=== PATIENT | female | born 1995 | race Hispanic/Latino ===

== ENCOUNTER 2018-04-17 21:11 | Emergency (ER) | payer MEDICAID ==
[~2018-04-17 21:11] MED LIST: MO8B PO
[2018-04-17 22:01] LABS: BASOPHILS % (AUTO) 0.6 % (0.0-5.0); EOSINOPHILS % (AUTO) 5.8 % (0.0-8.0); HEMATOCRIT 36.3 % (36-48); LYMPHOCYTES % (AUTO) 30.6 % (21.0-51.0); MEAN CORPUSCULAR HEMOGLOBIN 26.6 pg (27.0-33.0); MEAN CORPUSCULAR HGB CONC 33.2 g/dL (32.0-36.0); MEAN CORPUSCULAR VOLUME 80.2 fL (80-100); MONOCYTES % (AUTO) 4.9 % (3.0-13.0); NEUTROPHILS % (AUTO) 58.1 % (40.0-77.0); NUCLEATED RED BLOOD CELLS 0.1 % (0.0-0.19); PLATELET COUNT (AUTO) 312 K/uL (130-400); RED BLOOD CELL COUNT(AUTO) 4.52 MIL/uL (4.00-5.50); RED CELL DISTRIBUTION WIDTH 16.7 % (11.0-15.5); WHITE BLOOD COUNT (AUTO) 9.1 K/uL (4.8-10.8)
== END 2018-04-18 00:23 | disposition home or self-care (01) ==
LOC: EDH 21:11
DX: O20.0 Threatened abortion (principal); Z3A.15 15 weeks gestation of pregnancy
CPT/HCPCS: 36415; 76801; 84702; 85025; 86900; 86901

== ENCOUNTER 2018-10-10 07:37 | Inpatient (IN) | payer MEDICAID ==
[~2018-10-10] VITALS: Ht 160 cm; Wt 73.9 kg
[~2018-10-10 07:37] MED LIST changes: +IBUP-1493 PO; -MO8B PO
[2018-10-10] MEDS ORDERED: OXYTOCIN 10 USP UNITS/ML 20 UNIT in LACTATED RINGERS 1000ML 1,000 ML IV SCH (08:15)
[2018-10-10 08:23] LABS: APPEARANCE,URINE Clear (CLEAR); BILIRUBIN,URINE Negative (NEGATIVE); COLOR,URINE Yellow (YELLOW); GLUCOSE, URINE (UA) Negative (NEGATIVE); KETONES,URINE Negative (NEGATIVE); LEUKOCYTE ESTERASE ,URINE Large (NEGATIVE); NITRATE,URINE Negative (NEGATIVE); OCCULT BLOOD,URINE Small (NEGATIVE); PROTEIN,URINE Negative (NEGATIVE)
[2018-10-10 08:45] LABS: BACTERIA,URINE Few /HPF (None Seen); RBC,URINE 0-1 /HPF (0-1); TRICHOMONAS,URINE Few /LPF (None Seen); WBC,URINE >100 /HPF (0-1)
[2018-10-10 08:46] LABS: SQUAMOUS EPITHELIAL CELL,UR Moderate /HPF (0-2); YEAST,URINE BUDDING Few /HPF (None Seen)
[2018-10-10 08:47] LABS: MUCUS,URINE Rare LPF (None Seen)
[2018-10-10] MEDS ORDERED: OXYTOCIN-LR 20 UNITS/1000 ML 1,000 ML IV SCH ×3 (08:49→16:15)
[2018-10-10 08:53] LABS: HEMATOCRIT 31.1 % (36-48); MEAN CORPUSCULAR HEMOGLOBIN 24.6 pg (27.0-33.0); MEAN CORPUSCULAR HGB CONC 32.5 g/dL (32.0-36.0); MEAN CORPUSCULAR VOLUME 75.8 fL (80-100); PLATELET COUNT (AUTO) 289 K/uL (130-400); RED CELL DISTRIBUTION WIDTH 16.6 % (11.0-15.5); WHITE BLOOD COUNT (AUTO) 12.2 K/uL (4.8-10.8)
[2018-10-10] MEDS: LACTATED RINGERS 1000ML 1,000 ML IV PRN ×2 (08:54→11:03)
[2018-10-10] MEDS ORDERED: MEPERIDINE-PF 50 MG/ML SYG IVP PRN (09:00)
[2018-10-10] MEDS ORDERED: PROMETHAZINE HCL 25 MG/ML 1ML AMPULE IM PRN (09:00)
[2018-10-10] MEDS ORDERED: NALOXONE HCL 0.4 MG/1 ML ML IV PRN (09:00)
[2018-10-10] MEDS ORDERED: LIDOCAINE 2%-EPI 1:200,000 20 ML VIAL IJ SCH (09:00)
[2018-10-10] MEDS ORDERED: EPHEDRINE SULFATE 50 MG/ML AMPULE IVP PRN (09:00)
[2018-10-10] MEDS ORDERED: LACTATED RINGERS 500 ML 500 ML IV PRN (09:00)
[2018-10-10] MEDS ORDERED: ROPIVACAINE 0.2% 100ML VIAL 100 ML EP SCH (09:00)
[2018-10-10] MEDS ORDERED: ACETAMINOPHEN-CODEINE 300/30MG TAB PO PRN (16:15)
[2018-10-10] MEDS ORDERED: WITCH HAZEL 1 PAD TP PRN (16:15)
[2018-10-10] MEDS ORDERED: BENZOCAINE/LANOLIN/ALOE VERA 60 ML AEROSOL TP PRN (16:15)
[2018-10-10] MEDS ORDERED: LANOLIN 30GM OINTMENT TP PRN (16:15)
[2018-10-10] MEDS ORDERED: DIPH,PERTUSS(ACELL),TET VAC/PF 0.5 ML VIAL IM PRN (16:15)
[2018-10-10 18:39] VITALS: BP 119/68
[2018-10-10 19:41] VITALS: BP 115/78
[2018-10-10] MEDS: DOCUSATE SODIUM 100 MG CAP PO SCH (20:47)
[2018-10-10] MEDS: IBUPROFEN 800 MG TAB PO PRN (20:49)
[2018-10-10 23:18] VITALS: BP 102/74
[2018-10-11 03:13] VITALS: BP 91/57
[2018-10-11] MEDS: IBUPROFEN 800 MG TAB PO PRN ×2 (06:38→17:24)
[2018-10-11 07:25] VITALS: BP 101/74
[2018-10-11 08:32] LABS: RAPID PLASMA REAGIN NONREACTIVE (NONREACTIVE)
[2018-10-11 08:41] LABS: HEPATITIS Bs ANTIGEN SCREEN P Negative (Negative)
[2018-10-11] MEDS: DOCUSATE SODIUM 100 MG CAP PO SCH (08:54)
--- NOTE | 2018-10-11 09:00 | NUR ---
DR. SWIFT ROUNDED AND DISCHARGED PATIENT TO HOME ONCE BABY IS DISCHARGED. PATIENT DENIES ANY PROBLEMS AND VERBALIZED DOING WELL.
[2018-10-11 11:21] VITALS: BP 99/64
--- NOTE | 2018-10-11 12:00 | NUR ---
REMAINS STABLE AND DENIES PAIN.
[2018-10-11 16:18] VITALS: BP 96/62
--- NOTE | 2018-10-11 17:30 | NUR ---
PATIENT WAS GIVEN DISCHARGE INSTRUCTIONS AND WAS GIVEN MOTRIN PRIOR TO DISCHARGE. PATIENT INDICATED FOR MILD PAIN. DISCHARGE GIVEN AND WAS TAKEN VIA W/C CARRYING BABY IN ARMS. BOTH DISCHARGED TO SPOUSE IN STABLE CONDITION.
== END 2018-10-11 17:30 | disposition home or self-care (01) | DRG 560 ==
LOC: LDH 07:37 → WSH 18:34
PROC: 10E0XZZ Delivery of Products of Conception, External Approach (ICD-10-PCS; principal; 2018-10-10)
PROC: 3E033VJ Introduction of Other Hormone into Peripheral Vein, Percutaneous Approach (ICD-10-PCS; 2018-10-10)
PROC: 3E0234Z Introduction of Serum, Toxoid and Vaccine into Muscle, Percutaneous Approach (ICD-10-PCS; 2018-10-10)
PROC: 3E0R3BZ Introduction of Anesthetic Agent into Spinal Canal, Percutaneous Approach (ICD-10-PCS; 2018-10-10)
PROC: 00HU33Z Insertion of Infusion Device into Spinal Canal, Percutaneous Approach (ICD-10-PCS; 2018-10-10)
DX: O80 Encounter for full-term uncomplicated delivery (principal); Z23 Encounter for immunization; Z37.0 Single live birth; Z3A.39 39 weeks gestation of pregnancy
CPT/HCPCS: 36415; 81001; 85027; 86592; 86701; 86850; 86900; 86901; 87340; 87390; 90715; A4314; G0378; J2590; J2795; J3490

== ENCOUNTER 2019-12-26 16:02 | Observation (INO) | payer MEDICAID ==
[~2019-12-26] VITALS: Ht 160 cm; Wt 73.0 kg
[2019-12-26] MEDS: LACTATED RINGERS 1000ML IV SCH ×2 (16:55→18:00)
[2019-12-26 17:09] LABS: APPEARANCE,URINE Cloudy (CLEAR); BILIRUBIN,URINE Negative (NEGATIVE); COLOR,URINE Dark Yellow (YELLOW); GLUCOSE, URINE (UA) Negative (NEGATIVE); KETONES,URINE Negative (NEGATIVE); LEUKOCYTE ESTERASE ,URINE Large (NEGATIVE); NITRATE,URINE Positive (NEGATIVE); OCCULT BLOOD,URINE Moderate (NEGATIVE); PH,URINE 6.5 (5.0-8.0); PROTEIN,URINE Trace mg/dL (NEGATIVE)
[2019-12-26 17:25] LABS: HEMATOCRIT 31.1 % (36-48); MEAN CORPUSCULAR HGB CONC 32.2 g/dL (32.0-36.0); MEAN CORPUSCULAR VOLUME 84.1 fL (79-99); RED BLOOD CELL COUNT(AUTO) 3.7 MIL/uL (4.00-5.50); RED CELL DISTRIBUTION WIDTH 13.2 % (11.0-15.5); WHITE BLOOD COUNT (AUTO) 12.9 K/uL (4.8-10.8)
[2019-12-26 17:36] LABS: BACTERIA,URINE Few /HPF (None Seen); MUCUS,URINE Few LPF (None Seen); SQUAMOUS EPITHELIAL CELL,UR Moderate /HPF (0-2)
[2019-12-26] MEDS ORDERED: CEFTRIAXONE SODIUM 1 GM IV SCH (18:45)
[2019-12-26] MEDS ORDERED: SODIUM CHLORIDE 0.9% 10 ML VIAL ONE (19:32)
== END 2019-12-26 20:45 | disposition home or self-care (01) ==
LOC: EDH 16:02 → LDH 16:03
PROVIDERS: ADMIT Specialist; ATTEND Specialist
DX: O26.853 Spotting complicating pregnancy, third trimester (principal); R10.2 Pelvic and perineal pain; Z3A.32 32 weeks gestation of pregnancy
CPT/HCPCS: 36415; 76805; 81001; 85027; 87077; 87088; 87186; 96361; 96374; 99284; G0378 ×5; J0696; J7120 ×2; 96360

== ENCOUNTER 2020-02-04 02:05 | Inpatient (IN) | payer MEDICAID ==
[~2020-02-04] VITALS: Ht 157.5 cm; Wt 77.1 kg
[2020-02-04 02:53] LABS: BILIRUBIN,URINE Negative (NEGATIVE); COLOR,URINE Yellow (YELLOW); GLUCOSE, URINE (UA) Negative (NEGATIVE); KETONES,URINE Negative (NEGATIVE); LEUKOCYTE ESTERASE ,URINE Large (NEGATIVE); NITRATE,URINE Negative (NEGATIVE); OCCULT BLOOD,URINE Large (NEGATIVE); PH,URINE 6.5 (5.0-8.0); PROTEIN,URINE Negative (NEGATIVE)
[2020-02-04 02:54] LABS: APPEARANCE,URINE HAZY (CLEAR)
[2020-02-04] MEDS ORDERED: LACTATED RINGERS 1000ML 1,000 ML IV ONE (03:11)
[2020-02-04 03:14] LABS: BACTERIA,URINE Moderate /HPF (None Seen); TRICHOMONAS,URINE Few /LPF (None Seen); WBC,URINE 26-50 /HPF (0-1)
[2020-02-04] MEDS ORDERED: LACTATED RINGERS 1000ML 1,000 ML IV PRN (03:20)
[2020-02-04] MEDS ORDERED: ROPIVACAINE 0.2% 100ML VIAL 100 ML EP SCH (03:30)
[2020-02-04] MEDS ORDERED: LACTATED RINGERS 500 ML 500 ML IV PRN (03:30)
[2020-02-04] MEDS ORDERED: NALOXONE HCL 0.4 MG/1 ML ML IV PRN (03:30)
[2020-02-04] MEDS ORDERED: EPHEDRINE SULFATE 50 MG/ML AMPULE IVP PRN (03:30)
[2020-02-04] MEDS ORDERED: LIDOCAINE HCL 1% 20 ML VIAL ONE (03:39)
[2020-02-04 03:49] LABS: HEMATOCRIT 36.6 % (36-48); MEAN CORPUSCULAR HEMOGLOBIN 27.2 pg (27.0-33.0); MEAN CORPUSCULAR HGB CONC 32.5 g/dL (32.0-36.0); MEAN CORPUSCULAR VOLUME 83.8 fL (79-99); RED BLOOD CELL COUNT(AUTO) 4.37 MIL/uL (4.00-5.50); RED CELL DISTRIBUTION WIDTH 14.7 % (11.0-15.5); WHITE BLOOD COUNT (AUTO) 15.3 K/uL (4.8-10.8)
[2020-02-04] MEDS: OXYTOCIN-LR 20 UNITS/1000 ML 1,000 ML IV SCH ×2 (07:51→09:07)
[2020-02-04] MEDS ORDERED: ACETAMINOPHEN-CODEINE 300/30MG TAB PO PRN (08:30)
[2020-02-04] MEDS ORDERED: ACETAMINOPHEN 325 MG TAB PO PRN (08:30)
[2020-02-04] MEDS ORDERED: OXYTOCIN-LR 20 UNITS/1000 ML 1,000 ML IV SCH (08:30)
[2020-02-04] MEDS ORDERED: MEASLES/MUMPS/RUBELLA VACCINE, LIVE 0.5 ML/VIAL SQ PRN (08:30)
[2020-02-04] MEDS ORDERED: LANOLIN 30GM OINTMENT TP PRN (08:30)
[2020-02-04] MEDS ORDERED: BENZOCAINE/LANOLIN/ALOE VERA 60 ML AEROSOL TP PRN (08:30)
[2020-02-04] MEDS ORDERED: DIPH,PERTUSS(ACELL),TET VAC/PF 0.5 ML VIAL IM PRN (08:30)
[2020-02-04] MEDS ORDERED: WITCH HAZEL 1 PAD TP PRN (08:30)
[2020-02-04] MEDS: IBUPROFEN 600 MG TABLET PO PRN ×2 (09:08→16:25)
[2020-02-04 09:46] VITALS: BP 113/63
[2020-02-04] MEDS: DOCUSATE SODIUM 100 MG CAP PO SCH ×2 (09:55→20:56)
[2020-02-04] MEDS ORDERED: PREN-196 PO (10:02)
[2020-02-04 11:28] VITALS: BP 122/69
[2020-02-04 16:12] VITALS: BP 111/71
[2020-02-04 20:00] VITALS: BP 105/66
[2020-02-04 23:29] VITALS: BP 111/72
[2020-02-05 04:00] VITALS: BP 101/55
[2020-02-05 07:27] VITALS: BP 111/72
[2020-02-05] MEDS: IBUPROFEN 600 MG TABLET PO PRN (07:40)
[2020-02-05] MEDS: DOCUSATE SODIUM 100 MG CAP PO SCH (09:12)
--- NOTE | 2020-02-05 10:10 | NUR ---
pt is discharged, verbal and written discharge instructions given, informed of the follow up appointment, prescription given. informed to call the doctor for future concerns. pt voiced understanding to all things discussed. pt is waiting for baby's discharge. Addendum: 02/05/20 at 1020 by MAMADOU VARMA RN Amended: Links added.
--- NOTE | 2020-02-05 11:25 | NUR ---
pt is dismissed with her baby in stable condition. brought to private car via wheelchair by Jennifer Jasmine RN Addendum: 02/05/20 at 1126 by MAMADOU VARMA RN Amended: Links added.
== END 2020-02-05 11:25 | disposition home or self-care (01) | DRG 560 ==
LOC: EDH 02:05 → LDH 02:06 → OBSVTOIN 02:06 → WSH 09:40
PROVIDERS: ADMIT Specialist; ATTEND Specialist
PROC: 10E0XZZ Delivery of Products of Conception, External Approach (ICD-10-PCS; principal; 2020-02-04)
PROC: 3E0234Z Introduction of Serum, Toxoid and Vaccine into Muscle, Percutaneous Approach (ICD-10-PCS; 2020-02-04)
PROC: 3E0R3BZ Introduction of Anesthetic Agent into Spinal Canal, Percutaneous Approach (ICD-10-PCS; 2020-02-04)
PROC: 00HU33Z Insertion of Infusion Device into Spinal Canal, Percutaneous Approach (ICD-10-PCS; 2020-02-04)
DX: O80 Encounter for full-term uncomplicated delivery (principal); Z3A.38 38 weeks gestation of pregnancy; Z37.0 Single live birth; Z23 Encounter for immunization
CPT/HCPCS: 36415; 81001; 85027; 86592; 86850; 86900; 86901; 87077; 87088; 87186; 87340; 90715; A4314; G0378; J2590; J2795; J7120

== ENCOUNTER 2020-03-23 11:55 | Day surgery (SDC) | payer MEDICAID ==
[2020-03-16 11:11] LABS: BASOPHILS % (AUTO) 0.5 % (0.0-5.0); EOSINOPHILS % (AUTO) 11.4 % (0.0-8.0); HEMATOCRIT 40.7 % (36-48); LYMPHOCYTES % (AUTO) 24.8 % (21.0-51.0); MEAN CORPUSCULAR HEMOGLOBIN 27.1 pg (27.0-33.0); MEAN CORPUSCULAR HGB CONC 31.7 g/dL (32.0-36.0); MEAN CORPUSCULAR VOLUME 85.5 fL (79-99); NEUTROPHILS % (AUTO) 57.6 % (40.0-77.0); PLATELET COUNT (AUTO) 337 K/uL (130-400); RED BLOOD CELL COUNT(AUTO) 4.76 MIL/uL (4.00-5.50); WHITE BLOOD COUNT (AUTO) 9.2 K/uL (4.8-10.8)
[2020-03-19 12:53] VITALS: BP 109/62
[~2020-03-23] VITALS: Ht 162.6 cm; Wt 72.4 kg
[2020-03-23] VITALS (17 sets, daily range): BP systolic 106–142; BP diastolic 60–99
[2020-03-23] MEDS ORDERED: LACTATED RINGERS 1000ML 1,000 ML IV ONE (12:41)
[2020-03-23] MEDS ORDERED: LIDOCAINE PF 2% 5ML ABBOJECT ONE (12:44)
[2020-03-23] MEDS ORDERED: SUCCINYLCHOLINE CHLORIDE 20 MG/ML 10 ML VIAL ONE (12:44)
[2020-03-23] MEDS ORDERED: FENTANYL CITRATE PF 50 MCG/1 ML 2ML VIAL ONE (12:45)
[2020-03-23] MEDS ORDERED: ROCURONIUM 10MG/1ML SYR 10 MG/ML ML ONE (12:45)
[2020-03-23] MEDS ORDERED: PROPOFOL 10 MG/ML 20ML VIAL IV ONE (12:45)
[2020-03-23] MEDS ORDERED: GLYCOPYRROLATE 1 MG/5 ML SYRINGE ONE (13:53)
[2020-03-23] MEDS ORDERED: NEOSTIGMINE 5MG/5ML SYR IV ONE (13:54)
[2020-03-23] MEDS ORDERED: MEPERIDINE-PF 25 MG/ML SYG ONE ×2 (14:14→14:31)
--- NOTE | 2020-03-23 15:05 | NUR ---
POST RECEIVED PT FROM PACU, S/P LAP BTL. BANDAIDS X 2 DRY AND INTACT, KHANH PAD IN PLACE WITH NO DRAINAGE NOTED. PT AWAKE AND ALERT IN BED,NO DISTRESS NOTED. DENIED ANY PAIN OR DISCOMFORTS. CALL LIGHT WITHIN REACH. REPORT GIVEN TO DENEEN TREVIZO RN TO RESUME CARE OF PATIENT
--- NOTE | 2020-03-23 16:17 | NUR ---
PT STABLE, NO DISTRESS, VITALS WNL, 2 BANDAIDS TO ABDOMEN ARE D/I. INSTRUCTIONS GIVEN TO . PT TOLERATED FLUIDS AND VOIDED. PT DRESSED WITH ASSISTANCE, IV D/C CATHETER INTACT. PT TAKEN OUT TO CAR IN W/C DRIVEN HOME BY SPOUSE.
== END 2020-03-23 16:17 | disposition home or self-care (01) ==
LOC: DAH 11:55
PROVIDERS: ATTEND Specialist
DX: Z30.2 Encounter for sterilization (principal); Z20.828 Contact with and (suspected) exposure to other viral communicable diseases; N85.4 Malposition of uterus
CPT/HCPCS: 36415 ×2; 58671; 81025; 84703; 85025; 86850 ×2; 86900 ×2; 86901 ×2; A4215 ×2; A4221; A4222; A4223; A4264; A4351; A4606; A4663; C1769 ×2; C9803; J0330; J2001; J2175 ×2; J2704; J2710; J3010; J3490; J7120; U0003

== ENCOUNTER 2023-01-21 02:53 | Observation (INO) | payer MEDICAID ==
[~2023-01-21] VITALS: Ht 162.6 cm; Wt 83.5 kg
[2023-01-21] MEDS ORDERED: MORPHINE 4 MG SYG IVP ONE (04:00)
[2023-01-21] MEDS ORDERED: ONDANSETRON 4MG INJ IVP ONE (04:00)
[2023-01-21] MEDS ORDERED: MORPHINE 4 MG SYG ONE (04:01)
[2023-01-21 04:06] LABS: BASOPHILS % (AUTO) 0.5 % (0.0-5.0); HEMATOCRIT 42.3 % (36-48); LYMPHOCYTES % (AUTO) 29.3 % (21.0-51.0); MEAN CORPUSCULAR HGB CONC 31.9 g/dL (32.0-36.0); MEAN CORPUSCULAR VOLUME 87.8 fL (79-99); MONOCYTES % (AUTO) 5.4 % (3.0-13.0); NEUTROPHILS % (AUTO) 60.4 % (40.0-77.0); PLATELET COUNT (AUTO) 409 K/uL (130-400); RED BLOOD CELL COUNT(AUTO) 4.82 MIL/uL (4.00-5.50); RED CELL DISTRIBUTION WIDTH 14.3 % (11.0-15.5); WHITE BLOOD COUNT (AUTO) 13.8 K/uL (4.8-10.8)
[2023-01-21 04:23] LABS: CREATININE 0.9 mg/dL (0.5-1.5); POTASSIUM 3.4 mmol/L (3.5-5.1)
[2023-01-21] MEDS ORDERED: MORPHINE 2 MG SYG ONE (04:34)
[2023-01-21 04:35] LABS: ALBUMIN 3.5 g/dL (3.5-5.0); TOTAL PROTEIN, SERUM 8.5 g/dL (6.0-8.3)
[2023-01-21 04:37] LABS: APPEARANCE,URINE CLOUDY (CLEAR); BILIRUBIN,URINE NEGATIVE (NEGATIVE); COLOR,URINE LIGHT-YELLOW (YELLOW); GLUCOSE, URINE (UA) NEGATIVE (NEGATIVE); KETONES,URINE NEGATIVE (NEGATIVE); LEUKOCYTE ESTERASE ,URINE 75 Leu/uL (NEGATIVE); NITRATE,URINE NEGATIVE (NEGATIVE); OCCULT BLOOD,URINE NEGATIVE (NEGATIVE); PH,URINE 6.5 (5.0-8.0); PROTEIN,URINE NEGATIVE (NEGATIVE); UROBILINOGEN,URINE 0.2 mg/dL (0.2-1.0)
[2023-01-21 04:43] LABS: BACTERIA,URINE RARE /HPF (None Seen); MUCUS,URINE RARE LPF (None Seen); SQUAMOUS EPITHELIAL CELL,UR MANY /HPF (0-2)
[2023-01-21] MEDS ORDERED: MORPHINE 2 MG SYG IVP ONE (05:00)
[2023-01-21] MEDS ORDERED: ZOSYN 3.375GM +NS 50ML IVPB ONE (05:30)
[2023-01-21] MEDS ORDERED: HYDROMORPHONE 0.5 MG SYG (0.5MG/0.5ML) ONE (05:38)
[2023-01-21] MEDS ORDERED: HYDROMORPHONE 0.5 MG SYG (0.5MG/0.5ML) IVP ONE (06:00)
[2023-01-21 06:30] LABS: INR 0.93 (0.85-1.15); PROTHROMBIN TIME 10.3 SEC (9.6-11.6)
[2023-01-21] MEDS ORDERED: ACETAMINOPHEN 500 MG TABLET PO PRN (08:30)
[2023-01-21] MEDS ORDERED: 0.9%NACL 50ML IV SCH (08:30)
[2023-01-21] MEDS ORDERED: ONDANSETRON 4MG INJ IVP PRN (08:30)
[2023-01-21] MEDS ORDERED: KETOROLAC 15MG/ML VIAL (15MG/ML) IV PRN (08:30)
[2023-01-21] MEDS: LACTATED RINGERS 1000ML 1,000 ML IV SCH ×2 (09:18→20:36)
[2023-01-21] MEDS: PANTOPRAZOLE 40 MG/VIAL IVP SCH (09:18)
[2023-01-21] MEDS ORDERED: MORPHINE 2 MG SYG IVP PRN (09:30)
[2023-01-21 10:13] LABS: CRP QUANTITATIVE 12.2 mg/L (0.00-9.0); MAGNESIUM 1.7 mg/dL (1.80-2.40); THYROID STIMULATING HORMONE 4.13 uIU/mL (0.36-3.74)
[2023-01-21] MEDS: ZOSYN 3.375GM +NS 50ML IVPB SCH ×2 (11:54→20:18)
[2023-01-21] MEDS ORDERED: MAGNESIUM 2GM PREMIX 50ML 50 ML IV SCH (12:30)
[2023-01-21] MEDS ORDERED: POTASSIUM CHLORIDE 10% ELIXIR 20 MEQ/15 ML UDCUP PO PRN (12:30)
[2023-01-21] MEDS ORDERED: POTASSIUM CHLORIDE 20MEQ/100ML 100 ML IV PRN (12:30)
[2023-01-21] MEDS: KCL 20 MEQ ERTAB PO PRN ×2 (13:09→22:04)
[2023-01-21 14:21] VITALS: O2SAT 99
[2023-01-21 16:00] VITALS: BP 120/65; PULSE 60; RESP 15
[2023-01-21 19:00] VITALS: BP 106/60; PULSE 72; RESP 16
[2023-01-21 23:00] VITALS: BP 107/59; PULSE 64; RESP 16
[2023-01-22] VITALS (23 sets, daily range): BP systolic 107–150; BP diastolic 61–117; PULSE 67–155; RESP 17–19
[2023-01-22] MEDS: ZOSYN 3.375GM +NS 50ML IVPB SCH ×2 (03:22→14:26)
[2023-01-22 06:23] LABS: BASOPHILS % (AUTO) 0.3 % (0.0-5.0); EOSINOPHILS % (AUTO) 6.2 % (0.0-8.0); HEMATOCRIT 38.4 % (36-48); LYMPHOCYTES % (AUTO) 26.5 % (21.0-51.0); MEAN CORPUSCULAR HEMOGLOBIN 28.2 pg (27.0-33.0); MEAN CORPUSCULAR HGB CONC 31.8 g/dL (32.0-36.0); MEAN CORPUSCULAR VOLUME 88.9 fL (79-99); MONOCYTES % (AUTO) 5.2 % (3.0-13.0); NEUTROPHILS % (AUTO) 61.2 % (40.0-77.0); PLATELET COUNT (AUTO) 362 K/uL (130-400); RED BLOOD CELL COUNT(AUTO) 4.32 MIL/uL (4.00-5.50); RED CELL DISTRIBUTION WIDTH 14.1 % (11.0-15.5); WHITE BLOOD COUNT (AUTO) 10.5 K/uL (4.8-10.8)
[2023-01-22 06:43] LABS: CREATININE 0.8 mg/dL (0.5-1.5); TOTAL PROTEIN, SERUM 7.2 g/dL (6.0-8.3)
[2023-01-22] MEDS ORDERED: LIDOCAINE PF 100MG/5ML (2%) SYRINGE 5ML ONE ×2 (07:15→09:11)
[2023-01-22] MEDS ORDERED: DEXAMETHASONE SOD PHOSPHATE 10MG/ML 1ML VIAL ONE (07:15)
[2023-01-22] MEDS ORDERED: SUCCINYLCHOLINE 200MG/10ML SYR ONE (07:15)
[2023-01-22] MEDS ORDERED: PROPOFOL 10 MG/ML 20ML VIAL IV ONE (07:16)
[2023-01-22] MEDS ORDERED: GLYCOPYRROLATE 1 MG/5 ML SYRINGE ONE (07:16)
[2023-01-22] MEDS ORDERED: NEOSTIGMINE 5MG/5ML SYR IV ONE (07:16)
[2023-01-22] MEDS ORDERED: MIDAZOLAM HCL 1 MG/ML 2ML VIAL ONE (07:16)
[2023-01-22] MEDS ORDERED: ONDANSETRON 4MG INJ ONE (07:16)
[2023-01-22] MEDS ORDERED: FENTANYL CITRATE PF 50 MCG/1 ML 2ML VIAL ONE ×2 (07:17→08:21)
[2023-01-22] MEDS ORDERED: ROCURONIUM 10MG/1ML SYR 10 MG/ML ML ONE (07:17)
[2023-01-22] MEDS ORDERED: INDOCYANINE GREEN 25 MG VIAL IJ ONE (07:31)
[2023-01-22] MEDS ORDERED: BUPIVACAINE/PF 0.25% 30ML VIAL IJ ONE (07:33)
[2023-01-22] MEDS: PANTOPRAZOLE 40 MG/VIAL IVP SCH (08:30)
[2023-01-22] MEDS ORDERED: FENTANYL CITRATE PF 50 MCG/1 ML 5ML AMP IV ONE (08:40)
[2023-01-22] MEDS ORDERED: OXYMETAZOLINE HCL SPRAY 15 ML BOTTLE ONE (09:10)
[2023-01-22] MEDS ORDERED: ESMOLOL HCL 10 MG/ML 10 ML VIAL ONE (09:12)
[2023-01-22] MEDS ORDERED: MEPERIDINE-PF 25 MG/ML SYG ONE ×2 (09:41→09:50)
[2023-01-22] MEDS: LACTATED RINGERS 1000ML 1,000 ML IV SCH (11:10)
== END 2023-01-22 20:00 | disposition home or self-care (01) ==
LOC: EDH 02:53 → EDHIP 02:54 → UNDOADMIN 08:19 → 3CH 14:45 → EDHIP 14:45 → INTOOBSV 01-22 02:54 → EDHIP 01-22 02:54 → 3CH 01-22 02:54 → UNDOADMOB 01-22 02:54 → UNDODISOB 01-22 20:00
PROVIDERS: ADMIT Internal Medicine; ATTEND Internal Medicine
DX: K80.00 Calculus of gallbladder with acute cholecystitis without obstruction (principal); Z20.822 Contact with and (suspected) exposure to COVID-19; E86.0 Dehydration; E87.6 Hypokalemia; E83.42 Hypomagnesemia; E66.9 Obesity, unspecified; Z79.899 Other long term (current) drug therapy; Z98.890 Other specified postprocedural states; Z98.51 Tubal ligation status; Z68.31 Body mass index [BMI] 31.0-31.9, adult
CPT/HCPCS: 96376; 96365; 96366 ×3; 96375 ×2; 96368; 99285; 84443; 83735 ×2; 80053 ×2; 83690; 85025 ×2; 85610; 85730; 85651; 86850; 86900; 86901; 87040 ×2; 87088; 83605; 86140; 81001; 81025; 36415 ×2; 87635; 76705; 84145; 47562; J3475; J7120 ×3; J2270 ×2; J2405 ×2; J2543 ×5; S0164; J1170; S2900; G0378 ×2; A4663; J7030; J3010 ×3; J0330; J3490 ×6; J1100; J2710; J2250; J2175 ×2; J1885; G0168; C1769; A4649; A4215; A4223; A4335 ×2; A4222; A4221; A4216; A4600; 96367; C9113; J2001; J2704